=== PATIENT | male | born 1960 | race Two or more races ===

== ENCOUNTER 2017-03-18 12:48 | Inpatient (IN) | payer OTHER ==
[~2017-03-18] VITALS: Ht 162.6 cm; Wt 89.1 kg
[2017-03-18] MEDS ORDERED: SODIUM CHLORIDE 0.9% 1,000 ML IV ONE (12:56)
[2017-03-18] MEDS ORDERED: ONDANSETRON HCL 4 MG/2 ML VIAL IV ONE (13:00)
[2017-03-18] MEDS ORDERED: LORazepam 2MG/ML-1ML VIAL IV ONE (13:00)
[2017-03-18 13:18] LABS: Basophils # (auto) 0 uL; Basophils % (auto) 0.9 % (0.0-2.0); Eosinophils # (auto) 0 uL; Hematocrit 45.8 % (41.0-53.0); Hemoglobin 15.9 g/dL (13.5-17.5); Lymphocytes % (auto) 23.2 % (10.0-50.0); Mean Corpuscular Hemoglobin 33.9 pg (28.0-32.0); Mean Corpuscular Hgb Conc. 34.8 g/dL (32.0-36.0); Mean Corpuscular Volume 97.3 fL (80.0-100.0); Mean Platelet Volume 7.2 fL (6.9-10.8); Monocytes # (auto) 0.7 uL; Monocytes % (auto) 17.5 % (0.0-12.0); Neutrophils # (auto) 2.5 uL; Neutrophils % (auto) 58.4 % (37.0-80.0); Platelet Count (auto) 198 10^3/uL (140-450); Red Cell Distribution Width 14.2 % (11.8-14.3); White Blood Cell 4.2 10^3/uL (4.4-10.8)
[2017-03-18 13:44] LABS: Albumin 4.9 g/dL (3.4-5.0); Alkaline Phosphatase 64 U/L (45-117); Anion Gap 12 (5-15); Aspartate Aminotransferase 85 U/L (15-37); BUN/Creatinine Ratio 8.9; Blood Urea Nitrogen 7 mg/dL (7-18); Calcium 8.5 mg/dL (8.5-10.1); Carbon Dioxide 26 mmol/L (21-32); Chloride 99 mmol/L (98-107); GFR African American 131 mL/min; GFR Non-African American 108 mL/min; Glucose 126 mg/dL (74-106); Potassium 3.3 mmol/L (3.5-5.1); Sodium 137 mmol/L (136-145); Total Protein 8.5 g/dL (6.4-8.2)
[2017-03-18] MEDS ORDERED: POTASSIUM CHL 10% (20 MEQ/15ML) 15ml ORAL SOLN PO ONE (14:15)
[2017-03-18] MEDS ORDERED: metroNIDAZOLE 500MG/100ML 100 ML IV ONE (15:00)
[2017-03-18] MEDS ORDERED: PIPERACILLIN-TAZOB 3.375GM 50 ML IV ONE (15:00)
[2017-03-18 15:56] LABS: REFLEX LACTIC ACID YES OR NO YES
[2017-03-18] MEDS ORDERED: cloNIDine HCL 0.1 MG TAB PO PRN (16:00)
[2017-03-18] MEDS ORDERED: PANTOPRAZOLE 40 MG/10 ML VIAL IV ONE (16:00)
[2017-03-18] MEDS ORDERED: ONDANSETRON HCL 4 MG/2 ML VIAL IV PRN ×2 (16:00→22:00)
[2017-03-18] MEDS ORDERED: NITROGLYCERIN 0.4 MG SL TAB SL PRN ×2 (16:00→22:00)
[2017-03-18] MEDS ORDERED: HYDROcodone-ACET 5/325MG TAB PO PRN ×2 (16:00→22:00)
[2017-03-18] MEDS ORDERED: LORazepam 2MG/ML-1ML VIAL IV PRN ×2 (16:00→22:00)
[2017-03-18] MEDS ORDERED: THIAMINE HCL 100 MG/ML 2ML VIAL IV ONE (16:00)
[2017-03-18] MEDS ORDERED: MORPHINE SULF INJ 2 MG/ML SYRINGE 1ML IV PRN ×4 (16:00→22:15)
[2017-03-18] MEDS ORDERED: FOLIC ACID 1 MG in D5W 5% 50 ML IV ONE (16:00)
[2017-03-18] MEDS ORDERED: cefTRIAXone 1GM/50ML D5W 50 ML IV SCH (16:15)
[2017-03-18] MEDS ORDERED: METOPROLOL TARTRATE 25 MG TAB PO ONE (16:15)
[2017-03-18] MEDS ORDERED: ASPirin-EC 81 mg tab PO ONE (16:15)
[2017-03-18] MEDS: SOD CHL 0.45% WITH 20MEQ KCL 1,000 ML IV SCH ×2 (16:18→22:00)
[2017-03-18 20:01] LABS: Urine Bilirubin Negative (Negative); Urine Blood TRACE /uL (Negative); Urine Color Yellow (Yellow); Urine Glucose Normal (Normal); Urine Ketone TRACE (Negative); Urine Mucus FEW (None Seen); Urine Nitrite Negative (Negative); Urine RBC 12 /hpf (0 - 3); Urine Urobilinogen Normal (Negative)
[2017-03-18 20:30] VITALS: BP 149/70
[2017-03-18 21:52] VITALS: BP 149/70
[2017-03-18] MEDS ORDERED: ATORVASTATIN 20 MG TAB PO SCH (22:00)
[2017-03-18] MEDS: metroNIDAZOLE 500MG/100ML 100 ML IV SCH ×2 (22:00→22:32)
[2017-03-18] MEDS: ATORVASTATIN 20 MG TAB PO SCH (22:00)
[2017-03-18] MEDS: METOPROLOL TARTRATE 25 MG TAB PO SCH ×2 (22:00)
[2017-03-19] MEDS: SOD CHL 0.45% WITH 20MEQ KCL 1,000 ML IV SCH ×4 (02:00→21:32)
[2017-03-19 04:59] VITALS: BP 132/80
[2017-03-19] MEDS: metroNIDAZOLE 500MG/100ML 100 ML IV SCH ×4 (05:16→21:28)
[2017-03-19] MEDS: SODIUM CHLOR 0.9% PF (SALINE LOCK) 10ML VIAL IV SCH ×3 (05:22→21:29)
[2017-03-19 08:00] VITALS: BP 161/92
[2017-03-19 09:00] VITALS: BP 161/92
[2017-03-19] MEDS ORDERED: cefTRIAXone 1GM/50ML D5W 50 ML IV SCH (09:00)
[2017-03-19] MEDS ORDERED: ASPirin-EC 81 mg tab PO SCH ×2 (10:00)
[2017-03-19] MEDS: METOPROLOL TARTRATE 25 MG TAB PO SCH ×3 (10:00→21:28)
[2017-03-19] MEDS ORDERED: FOLIC ACID 1 MG in D5W 5% 50 ML IV SCH (10:00)
[2017-03-19] MEDS ORDERED: THIAMINE HCL 100 MG/ML 2ML VIAL IV SCH (10:00)
[2017-03-19] MEDS ORDERED: PANTOPRAZOLE 40 MG/10 ML VIAL IV SCH (10:00)
[2017-03-19] MEDS: cefTRIAXone 1GM/50ML D5W 50 ML IV SCH (10:14)
[2017-03-19] MEDS: THIAMINE HCL 100 MG/ML 2ML VIAL IV SCH (10:14)
[2017-03-19] MEDS: PANTOPRAZOLE 40 MG/10 ML VIAL IV SCH (10:14)
[2017-03-19] MEDS: FOLIC ACID 1 MG in D5W 5% 50 ML INJ SCH (11:58)
[2017-03-19 13:00] VITALS: BP 139/88
[2017-03-19 17:00] VITALS: BP 151/92
[2017-03-19] MEDS: ATORVASTATIN 20 MG TAB PO SCH (21:28)
[2017-03-19 22:00] VITALS: BP 133/83
[2017-03-20 04:59] VITALS: BP 128/81
[2017-03-20] MEDS: metroNIDAZOLE 500MG/100ML 100 ML IV SCH ×3 (05:23→21:26)
[2017-03-20] MEDS: SOD CHL 0.45% WITH 20MEQ KCL 1,000 ML IV SCH ×2 (05:25→19:20)
[2017-03-20] MEDS: SODIUM CHLOR 0.9% PF (SALINE LOCK) 10ML VIAL IV SCH ×3 (05:27→21:26)
[2017-03-20 08:00] VITALS: BP 143/82
[2017-03-20 09:00] VITALS: BP 143/87
[2017-03-20] MEDS: THIAMINE HCL 100 MG/ML 2ML VIAL IV SCH (10:16)
[2017-03-20] MEDS: cefTRIAXone 1GM/50ML D5W 50 ML IV SCH (10:16)
[2017-03-20] MEDS: PANTOPRAZOLE 40 MG/10 ML VIAL IV SCH (10:16)
[2017-03-20] MEDS: LISINOPRIL 10 MG TAB PO SCH (10:17)
[2017-03-20 13:00] VITALS: BP 152/91
[2017-03-20] MEDS: FOLIC ACID 1 MG in D5W 5% 50 ML INJ SCH (13:18)
[2017-03-20 17:00] VITALS: BP 136/93
[2017-03-20] MEDS: ATORVASTATIN 20 MG TAB PO SCH (21:25)
[2017-03-20 21:58] VITALS: BP 144/88
[2017-03-21 04:55] VITALS: BP 132/86
[2017-03-21] MEDS: SODIUM CHLOR 0.9% PF (SALINE LOCK) 10ML VIAL IV SCH (05:36)
[2017-03-21] MEDS: SOD CHL 0.45% WITH 20MEQ KCL 1,000 ML IV SCH (05:36)
[2017-03-21] MEDS: metroNIDAZOLE 500MG/100ML 100 ML IV SCH (05:36)
[2017-03-21 06:57] LABS: BUN/Creatinine Ratio 5.3; Bilirubin, Total 1.2 mg/dL (0.2-1.0); Calcium 7.9 mg/dL (8.5-10.1); Potassium 3.4 mmol/L (3.5-5.1); Total Protein 7.2 g/dL (6.4-8.2)
[2017-03-21 09:00] VITALS: BP 140/87
[2017-03-21] MEDS: FOLIC ACID 1 MG in D5W 5% 50 ML INJ SCH (11:52)
[2017-03-21] MEDS: LISINOPRIL 10 MG TAB PO SCH (11:52)
[2017-03-21] MEDS: THIAMINE HCL 100 MG/ML 2ML VIAL IV SCH (11:52)
[2017-03-21] MEDS ORDERED: metroNIDAZOLE 500 MG TAB PO SCH (14:00)
[2017-03-21 14:08] VITALS: BP 138/91
== END 2017-03-21 16:00 | disposition home or self-care (01) | DRG 244 ==
LOC: ER 12:48 → TELE 12:49 → UNDODISIN 19:31 → TELE-EAST 20:17
PROVIDERS: ADMIT Internal Medicine; ATTEND Internal Medicine
DX: K57.92 Diverticulitis of intestine, part unspecified, without perforation or abscess without bleeding (principal); A04.72 Enterocolitis due to Clostridium difficile, not specified as recurrent; K76.0 Fatty (change of) liver, not elsewhere classified; E66.9 Obesity, unspecified; F10.10 Alcohol abuse, uncomplicated; Z68.33 Body mass index [BMI] 33.0-33.9, adult; G40.909 Epilepsy, unspecified, not intractable, without status epilepticus; R07.89 Other chest pain; I10 Essential (primary) hypertension; Z79.899 Other long term (current) drug therapy; Z82.49 Family history of ischemic heart disease and other diseases of the circulatory system; Z87.891 Personal history of nicotine dependence
CPT/HCPCS: 36415; 71010; 74176; 76705; 80053; 81001; 83605; 83690; 84132; 84484; 85025; 87040; 87081; 87493; 93005; 93306; 96361; 96365; 96366; 96367; 96368; 96375; C9113; J0696; J2405; J2543; J3490; J7060

== ENCOUNTER 2018-08-22 14:34 | Emergency (ER) | payer OTHER ==
[~2018-08-22] VITALS: Ht 162.6 cm; Wt 81.6 kg
[2018-08-22] MEDS ORDERED: SODIUM CHLORIDE 0.9% 1,000 ML IVB ONE (14:47)
[2018-08-22] MEDS ORDERED: LORazepam 2MG/ML-1ML VIAL IV ONE (15:00)
[2018-08-22 15:18] LABS: Basophils # (auto) 0 uL; Basophils % (auto) 0.8 % (0.0-2.0); Eosinophils # (auto) 0 uL; Eosinophils % (auto) 0.4 % (0.0-7.0); Hematocrit 45.2 % (41.0-53.0); Hemoglobin 15.8 g/dL (13.5-17.5); Lymphocytes # (auto) 2.5 uL; Lymphocytes % (auto) 39.1 % (10.0-50.0); Mean Corpuscular Hemoglobin 33.8 pg (28.0-32.0); Mean Corpuscular Volume 96.7 fL (80.0-100.0); Monocytes # (auto) 0.8 uL; Monocytes % (auto) 11.9 % (0.0-12.0); Neutrophils % (auto) 47.8 % (37.0-80.0); Nucleated Red Blood Cells % 0.1 %; Platelet Count (auto) 247 10^3/uL (140-450); Red Blood Cells 4.67 10^6/uL (4.5-5.90); Red Cell Distribution Width 12.6 % (11.8-14.3); White Blood Cell 6.4 10^3/uL (4.4-10.8)
[2018-08-22 15:32] LABS: Albumin 4.2 g/dL (3.4-5.0); Calcium 8.1 mg/dL (8.5-10.1)
[2018-08-22 15:39] LABS: BUN/Creatinine Ratio 14.1; Bilirubin, Total 0.5 mg/dL (0.2-1.0); Total Protein 7.7 g/dL (6.4-8.2)
[2018-08-22] MEDS ORDERED: SODIUM CHLORIDE 0.9% 1,000 ML IV ONE (22:45)
[2018-08-22 23:37] LABS: Urine Bacteria NONE SEEN /hpf (None Seen); Urine Blood Negative /uL (Negative); Urine Hyaline Cast FEW /lpf (0 - 2); Urine Mucus FEW (None Seen); Urine Specific Gravity 1.016 (1.001-1.035); Urine WBC <1 /hpf (0 - 3)
[2018-08-22 23:40] LABS: Amphetamine Screen, Urine NEGATIVE (NEGATIVE); Barbiturate Scree,Urine NEGATIVE (NEGATIVE); Benzodiazephine Screen, Urine NEGATIVE (NEGATIVE); Cannabinoid Screen, Urine NEGATIVE (NEGATIVE); Cocaine Screen, Urine NEGATIVE (NEGATIVE); Opiate Scree,Urine NEGATIVE (NEGATIVE); Phencyclidine Screen, Urine NEGATIVE (NEGATIVE)
[2018-08-23] MEDS ORDERED: MULTIPLE VITAMIN 10 ML, MAGNESIUM SULF SDV 50% 8 MEQ, THIAMINE INJ 100 MG in SODIUM CHL... IV ONE ×4
[2018-08-23 04:21] VITALS: BP 116/70
[2018-08-23] MEDS ORDERED: MULTIPLE VITAMIN 10 ML, MAGNESIUM SULF SDV 50% 8 MEQ, THIAMINE INJ 100 MG in SODIUM CHL... IV SCH (12:00)
== END 2018-08-23 06:12 | disposition home or self-care (01) ==
LOC: ER 14:34 → EDBD 14:34 → ER 08-23 06:12
DX: F10.229 Alcohol dependence with intoxication, unspecified (principal); G92 Toxic encephalopathy; G40.909 Epilepsy, unspecified, not intractable, without status epilepticus; Z87.891 Personal history of nicotine dependence; Y90.8 Blood alcohol level of 240 mg/100 ml or more
CPT/HCPCS: 36415; 80053; 80307; 80320; 81001; 85025; 96374; 96375; 99283; J2060; J7030

== ENCOUNTER 2018-09-21 15:39 | Emergency (ER) | payer OTHER ==
[~2018-09-21] VITALS: Ht 162.6 cm; Wt 83.9 kg
[2018-09-21 16:22] LABS: Basophils # (auto) 0 uL; Basophils % (auto) 0.4 % (0.0-2.0); Eosinophils # (auto) 0.1 uL; Eosinophils % (auto) 1.3 % (0.0-7.0); Hematocrit 43.4 % (41.0-53.0); Hemoglobin 15.3 g/dL (13.5-17.5); Lymphocytes # (auto) 2.2 uL; Lymphocytes % (auto) 38.3 % (10.0-50.0); Mean Corpuscular Hemoglobin 33.5 pg (28.0-32.0); Mean Corpuscular Hgb Conc. 35.3 g/dL (32.0-36.0); Monocytes # (auto) 0.5 uL; Monocytes % (auto) 8.2 % (0.0-12.0); Neutrophils # (auto) 2.9 uL; Neutrophils % (auto) 51.8 % (37.0-80.0); Nucleated Red Blood Cells % 0.1 %; Platelet Count (auto) 178 10^3/uL (140-450); Red Blood Cells 4.57 10^6/uL (4.5-5.90); Red Cell Distribution Width 12.8 % (11.8-14.3); White Blood Cell 5.6 10^3/uL (4.4-10.8)
[2018-09-21] MEDS ORDERED: SODIUM CHLORIDE 0.9% 1,000 ML IV ONE (16:30)
[2018-09-21 16:38] LABS: Albumin 4.2 g/dL (3.4-5.0); Anion Gap 17 (5-15); Blood Urea Nitrogen 7 mg/dL (7-18); Calcium 8.3 mg/dL (8.5-10.1); Carbon Dioxide 21 mmol/L (21-32); Chloride 107 mmol/L (98-107); Glucose 126 mg/dL (74-106); Magnesium 1.9 mg/dL (1.6-2.6); Potassium 3.2 mmol/L (3.5-5.1); Sodium 145 mmol/L (136-145)
[2018-09-21 16:39] LABS: Alanine Aminotransferase 129 U/L (16-61); Aspartate Aminotransferase 164 U/L (15-37); GFR African American 130 mL/min; GFR Non-African American 107 mL/min
[2018-09-21 16:41] LABS: Alkaline Phosphatase 50 U/L (45-117); Bilirubin, Total 1.2 mg/dL (0.2-1.0); Total Protein 7.9 g/dL (6.4-8.2)
[2018-09-21 17:27] LABS: Blood Alcohol 328.7 mg/dL (0-5)
[2018-09-21 17:28] LABS: BUN/Creatinine Ratio 328.7
[2018-09-21] MEDS ORDERED: ONDANSETRON HCL 4 MG/2 ML VIAL ONE (18:20)
[2018-09-21] MEDS ORDERED: ONDANSETRON HCL 4 MG/2 ML VIAL IV ONE (18:30)
[2018-09-21 20:33] VITALS: BP 114/74
== END 2018-09-21 21:29 | disposition home or self-care (01) ==
LOC: ER 15:39
DX: F10.229 Alcohol dependence with intoxication, unspecified (principal); R41.82 Altered mental status, unspecified; E78.5 Hyperlipidemia, unspecified; Z87.891 Personal history of nicotine dependence; Y90.8 Blood alcohol level of 240 mg/100 ml or more
CPT/HCPCS: 36415; 70450; 71045; 80053; 80320; 82140; 83735; 84484; 85025; 93005; 96361; 96374; 99284; J2405; J7030

== ENCOUNTER 2020-03-04 18:06 | Emergency (ER) | payer OTHER ==
[~2020-03-04] VITALS: Ht 170.2 cm; Wt 108.9 kg
[2020-03-04] MEDS: THIAMINE INJ 100 MG in SODIUM CHLORIDE 0.9% 1,000 ML IV ONE (18:45)
[2020-03-04] MEDS: SODIUM CHLORIDE 0.9% 1,000 ML IV ONE (18:47)
[2020-03-04] MEDS: LORazepam 2MG/ML-1ML VIAL IV ONE (18:52)
[2020-03-04 20:37] LABS: Basophils # (auto) 0.1 10 ^3/uL (0-0.2); Basophils % (auto) 0.7 % (0.0-2.0); Eosinophils # (auto) 0 10 ^3/uL (0-0.8); Eosinophils % (auto) 0.2 % (0.0-7.0); Hematocrit 46.4 % (41.0-53.0); Hemoglobin 15.9 g/dL (13.5-17.5); Lymphocytes # (auto) 1.9 10 ^3/uL (0.4-5.4); Lymphocytes % (auto) 24.4 % (10.0-50.0); Mean Corpuscular Hemoglobin 31.8 pg (28.0-32.0); Mean Corpuscular Hgb Conc. 34.3 g/dL (32.0-36.0); Mean Corpuscular Volume 92.5 fL (80.0-100.0); Monocytes # (auto) 0.6 10 ^3/uL (0-1.3); Monocytes % (auto) 7.2 % (0.0-12.0); Neutrophils # (auto) 5.3 10 ^3/uL (1.6-8.6); Neutrophils % (auto) 67.5 % (37.0-80.0); Nucleated Red Blood Cells % 0.1 %; Platelet Count (auto) 266 10^3/uL (140-450); Red Blood Cells 5.01 10^6/uL (4.5-5.90); Red Cell Distribution Width 14.3 % (11.8-14.3); White Blood Cell 7.9 10^3/uL (4.4-10.8)
[2020-03-04 20:53] LABS: Albumin 4.2 g/dL (3.4-5.0); BUN/Creatinine Ratio 11.9; Calcium 8.3 mg/dL (8.5-10.1); Magnesium 2.5 mg/dL (1.6-2.6); Potassium 3.4 mmol/L (3.5-5.1)
[2020-03-04 20:56] LABS: Bilirubin, Total 0.4 mg/dL (0.2-1.0); Total Protein 7.9 g/dL (6.4-8.2)
[2020-03-04 21:11] LABS: Blood Alcohol 323.5 mg/dL (0-5)
[2020-03-05 00:07] LABS: Urine Bacteria FEW /hpf (None Seen); Urine Blood TRACE /uL (Negative); Urine Specific Gravity 1.009 (1.001-1.035); Urine WBC 1 /hpf (0 - 3)
[2020-03-05 00:18] LABS: Amphetamine Screen, Urine NEGATIVE (NEGATIVE); Barbiturate Scree,Urine NEGATIVE (NEGATIVE); Benzodiazephine Screen, Urine NEGATIVE (NEGATIVE); Cannabinoid Screen, Urine NEGATIVE (NEGATIVE); Cocaine Screen, Urine NEGATIVE (NEGATIVE); Opiate Scree,Urine NEGATIVE (NEGATIVE); Phencyclidine Screen, Urine NEGATIVE (NEGATIVE)
[2020-03-05 05:01] VITALS: BP 134/102
== END 2020-03-05 05:00 | disposition home or self-care (01) ==
LOC: EDBD 18:06 → ER 18:06
DX: F10.920 Alcohol use, unspecified with intoxication, uncomplicated (principal)
CPT/HCPCS: 36415; 80053; 80307; 80320; 81001; 83735; 85025; 96365; 96375; 99285; J2060; J3411; J7030; 96361

== ENCOUNTER 2022-10-22 | Emergency (ER) | payer OTHER ==
[~2022-10-22] VITALS: Ht 162.6 cm; Wt 84.1 kg
[2022-10-22] MEDS ORDERED: amLODIPine BESYLATE 5 MG TAB PO ONE (00:30)
[2022-10-22 02:37] VITALS: BP 143/84
== END 2022-10-22 02:45 | disposition short-term general hospital (02) ==
LOC: ER 00:09
DX: S06.5X0A Traumatic subdural hemorrhage without loss of consciousness, initial encounter (principal); E78.5 Hyperlipidemia, unspecified; I10 Essential (primary) hypertension; Z87.891 Personal history of nicotine dependence; W01.0XXA Fall on same level from slipping, tripping and stumbling without subsequent striking against object, initial encounter; Y93.89 Activity, other specified; Y92.89 Other specified places as the place of occurrence of the external cause; Y99.8 Other external cause status
CPT/HCPCS: 70450; 70486; 82962; 93005

== ENCOUNTER 2023-01-21 20:14 | Emergency (ER) | payer OTHER ==
[~2023-01-21] VITALS: Ht 170.2 cm; Wt 107.0 kg
[2023-01-21 21:00] VITALS: PULSE 74; RESP 16; TEMP 98.4; O2SAT 95
[2023-01-21 21:02] LABS: Basophils # (auto) 0 10 ^3/uL (0-0.2); Basophils % (auto) 0.5 % (0.0-2.0); Eosinophils # (auto) 0.2 10 ^3/uL (0-0.8); Hematocrit 48.9 % (41.0-53.0); Hemoglobin 16.9 g/dL (13.5-17.5); Lymphocytes % (auto) 42.1 % (10.0-50.0); Mean Corpuscular Hemoglobin 32.2 pg (28.0-32.0); Mean Corpuscular Hgb Conc. 34.5 g/dL (32.0-36.0); Mean Corpuscular Volume 93.3 fL (80.0-100.0); Monocytes # (auto) 0.9 10 ^3/uL (0-1.3); Neutrophils # (auto) 4.4 10 ^3/uL (1.6-8.6); Neutrophils % (auto) 46.4 % (37.0-80.0); Nucleated Red Blood Cells % 0.2 %; Red Blood Cells 5.25 10^6/uL (4.5-5.90); Red Cell Distribution Width 13.1 % (11.8-14.3); White Blood Cell 9.5 10^3/uL (4.4-10.8)
[2023-01-21 21:03] LABS: Alanine Aminotransferase 38 U/L (7-40); Albumin 5.1 g/dL (3.2-4.8); Alkaline Phosphatase 44 U/L (46-116); Anion Gap 14 (5-15); Aspartate Aminotransferase 22 U/L (13-40); Bilirubin, Total 0.4 mg/dL (0.2-1.0); Blood Urea Nitrogen 8 mg/dL (9-23); Calcium 9.6 mg/dL (8.7-10.4); Carbon Dioxide 21 mmol/L (20-30); Chloride 109 mmol/L (98-107); Glucose 109 mg/dL (74-106); Magnesium 2.2 mg/dL (1.6-2.6); Potassium 3.6 mmol/L (3.5-5.1); Sodium 144 mmol/L (136-145); Total Protein 7.6 g/dL (5.7-8.2)
[2023-01-21 21:04] LABS: INR 1.08 (0.9-1.15); Partial Thromboplastin Time 31.3 SEC (24.5-34.5); Prothrombin Time 11.3 sec (9.3-11.8)
[2023-01-21 21:05] LABS: Acetaminophen < 2.0 UG/ML (10.0-20.0)
[2023-01-21 21:09] LABS: Salicylate < 3.0 mg/dL (2.8-20.0)
[2023-01-21 23:21] LABS: Blood Alcohol 333.2 mg/dL (<10)
[2023-01-22 07:00] VITALS: BP 112/61; PULSE 80; RESP 17; O2SAT 94
== END 2023-01-22 07:07 | disposition home or self-care (01) ==
LOC: EDBD 20:14 → ER 20:14
DX: F10.129 Alcohol abuse with intoxication, unspecified (principal); I10 Essential (primary) hypertension; E78.5 Hyperlipidemia, unspecified; R56.9 Unspecified convulsions
CPT/HCPCS: 36415; 70450; 72125; 80053; 80320; 80329; 82140; 82962; 83690; 83735; 83880; 84484; 85025; 85610; 85730

== ENCOUNTER 2023-05-17 15:13 | Emergency (ER) | payer OTHER ==
[~2023-05-17] VITALS: Ht 157.5 cm; Wt 90.0 kg
[2023-05-17] MEDS ORDERED: LORazepam 2MG/ML-1ML VIAL IV ONE (16:45)
[2023-05-17 17:19] VITALS: BP 98/52; PULSE 94; RESP 15; O2SAT 96
[2023-05-17 17:19] LABS: Basophils # (auto) 0 10 ^3/uL (0-0.2); Eosinophils # (auto) 0 10 ^3/uL (0-0.8); Hemoglobin 18.3 g/dL (13.5-17.5); Mean Corpuscular Hemoglobin 31.4 pg (28.0-32.0)
[2023-05-17 17:21] LABS: Basophils % (auto) 0.4 % (0.0-2.0); Eosinophils % (auto) 0.3 % (0.0-7.0); Hematocrit 54.1 % (41.0-53.0); Lymphocytes # (auto) 3.2 10 ^3/uL (0.4-5.4); Lymphocytes % (auto) 28.6 % (10.0-50.0); Mean Corpuscular Hgb Conc. 33.8 g/dL (32.0-36.0); Mean Corpuscular Volume 92.8 fL (80.0-100.0); Monocytes # (auto) 1.1 10 ^3/uL (0-1.3); Monocytes % (auto) 9.9 % (0.0-12.0); Neutrophils # (auto) 6.7 10 ^3/uL (1.6-8.6); Neutrophils % (auto) 60.8 % (37.0-80.0); Nucleated Red Blood Cells % 0.3 %; Red Blood Cells 5.83 10^6/uL (4.5-5.90); White Blood Cell 11.1 10^3/uL (4.4-10.8)
[2023-05-17 21:47] LABS: Chloride 112 mmol/L (98-107); Potassium 3.6 mmol/L (3.5-5.1); Sodium 146 mmol/L (136-145)
[2023-05-17 21:48] LABS: Anion Gap 14 (5-15); Carbon Dioxide 20 mmol/L (20-30)
[2023-05-17 21:49] LABS: Calcium 9.1 mg/dL (8.5-10.1)
[2023-05-17 21:53] LABS: Glucose 98 mg/dL (74-106)
[2023-05-17 22:07] LABS: BUN/Creatinine Ratio 6.4 (10.0-20.0); Blood Urea Nitrogen < 5 mg/dL (9-23)
== END 2023-05-17 23:11 | disposition left against medical advice (07) ==
LOC: EDUNIT# 15:13 → ER 15:13 → EDBD 15:13 → ER 21:57
DX: F10.10 Alcohol abuse, uncomplicated (principal); R51.9 Headache, unspecified; Z53.21 Procedure and treatment not carried out due to patient leaving prior to being seen by health care provider
CPT/HCPCS: 36415; 70450; 80048; 85025; 96374; 99285; J2060